=== PATIENT | female | born 1985 | race Caucasian/White ===

== ENCOUNTER → 2016-11-26 | Outpatient (CLI) | payer MEDICAID | LOC: CIMAGING 10:13 | PROVIDERS: ATTEND Physician Assistant | DX: Z30.431 Encounter for routine checking of intrauterine contraceptive device (principal) | CPT/HCPCS: 76856-PO ==

== ENCOUNTER 2018-10-22 13:53 | Emergency (ER) | payer OTHER | END 2018-10-22 17:07 | disposition home or self-care (01) ==